=== PATIENT | male | born 1990 | race Caucasian/White ===

== ENCOUNTER 2022-05-12 20:59 | Emergency (ER) | payer BC, OTHER ==
[~2022-05-12] VITALS: Ht 187.9 cm; Wt 122.5 kg
[~2022-05-12 20:59] MED LIST: ATARAX25 MG PO; PREDNISONE20 MG PO
[2022-05-12 21:41] VITALS: BP 142/83
[2022-05-12] MEDS ORDERED: DIPROSONE 0.05%15 GM T (21:48)
[2022-05-12] MEDS ORDERED: GOOD NEIGHBOR L10 MG PO (21:48)
[2022-05-12] MEDS ORDERED: HYDROXYZINE HCL25 MG PO (21:48)
== END 2022-05-13 01:23 | disposition left against medical advice (07) ==
LOC: ED 20:59
DX: R50.9 Fever, unspecified (principal); Z20.822 Contact with and (suspected) exposure to COVID-19; Z79.899 Other long term (current) drug therapy

== ENCOUNTER → 2024-10-13 | Outpatient (CLI) | payer BC ==
[~2024-10-13] MED LIST changes: +DIPROSONE 0.05%15 GM T; +GOOD NEIGHBOR L10 MG PO; +HYDROXYZINE HCL25 MG PO
== END | disposition home or self-care (01) ==
LOC: ORTHO 02:04
PROVIDERS: ATTEND Orthopaedic Surgery
DX: S62.316D Displaced fracture of base of fifth metacarpal bone, right hand, subsequent encounter for fracture with routine healing (principal); X58.XXXD Exposure to other specified factors, subsequent encounter

== ENCOUNTER → 2024-10-27 | Outpatient (CLI) | payer BC | END | disposition home or self-care (01) | LOC: ORTHO 03:30 | PROVIDERS: ATTEND Orthopaedic Surgery | DX: S62.316D Displaced fracture of base of fifth metacarpal bone, right hand, subsequent encounter for fracture with routine healing (principal); X58.XXXD Exposure to other specified factors, subsequent encounter ==